=== PATIENT | female | born 1980 | race Two or more races ===

== ENCOUNTER 2019-10-11 14:38 | Inpatient (IN) | payer OTHER ==
[~2019-10-11] VITALS: Ht 167.6 cm; Wt 114.3 kg
== END 2019-10-31 11:44 | disposition home or self-care (01) | DRG 807 ==
LOC: LDR 10-29 07:10 → OB/GYN 10-29 17:01
PROVIDERS: ADMIT Obstetrics & Gynecology Maternal & Fetal Medicine
PROC: 10E0XZZ Delivery of Products of Conception, External Approach (ICD-10-PCS; principal; 2019-10-29)
PROC: 10907ZC Drainage of Amniotic Fluid, Therapeutic from Products of Conception, Via Natural or Artificial Opening (ICD-10-PCS; 2019-10-29)
PROC: 3E033VJ Introduction of Other Hormone into Peripheral Vein, Percutaneous Approach (ICD-10-PCS; 2019-10-29)
PROC: 4A1HXCZ Monitoring of Products of Conception, Cardiac Rate, External Approach (ICD-10-PCS; 2019-10-29)
DX: O80 Encounter for full-term uncomplicated delivery (principal); Z37.0 Single live birth; Z3A.39 39 weeks gestation of pregnancy

== ENCOUNTER 2020-04-17 13:00 | Outpatient (CLI) | payer OTHER | END 2020-04-17 13:05 | disposition home or self-care (01) | LOC: RAD 13:00 | DX: M25.552 Pain in left hip (principal) ==

== ENCOUNTER 2020-05-20 09:45 | Outpatient (CLI) | payer OTHER | END 2020-05-20 09:50 | disposition home or self-care (01) | LOC: MRI 09:45 | PROVIDERS: ATTEND Internal Medicine | DX: M54.5 Low back pain (principal); Z01.810 Encounter for preprocedural cardiovascular examination; S83.200A Bucket-handle tear of unspecified meniscus, current injury, right knee, initial encounter | CPT/HCPCS: 73718 ==

== ENCOUNTER 2020-11-13 11:22 | Outpatient (CLI) | payer OTHER | END 2020-11-13 12:45 | disposition home or self-care (01) | LOC: MRI 11:22 | PROVIDERS: ATTEND Orthopaedic Surgery | DX: M25.461 Effusion, right knee (principal); M25.561 Pain in right knee | CPT/HCPCS: 73721 ==

== ENCOUNTER 2022-08-12 09:48 | Emergency (ER) | payer OTHER ==
[~2022-08-12] VITALS: Ht 167.6 cm; Wt 90.7 kg
[2022-08-12] MEDS ORDERED: DICLOFENAC POTA50 MG PO (14:50)
[2022-08-12] MEDS ORDERED: ORPHENADRINE C100 MG PO (14:50)
== END 2022-08-12 15:07 ==
LOC: ER 09:48 → EDBD 09:53 → ER 09:53
DX: M54.12 Radiculopathy, cervical region (principal); R51.9 Headache, unspecified; Z88.8 Allergy status to other drugs, medicaments and biological substances

== ENCOUNTER 2023-08-21 03:32 | Emergency (ER) | payer OTHER ==
[~2023-08-21] VITALS: Ht 165.1 cm; Wt 88.5 kg
[~2023-08-21 03:32] MED LIST: DICLOFENAC POTA50 MG PO; ORPHENADRINE C100 MG PO
[2023-08-21 06:16] LABS: HEMATOCRIT 38.1 % (36.0-45.00); HEMOGLOBIN 12.7 g/dL (12.0-15.00); MEAN CORPUSCULAR HEMOGLOBIN 32.2 pg (27.00-32.0); MEAN CORPUSCULAR HGB CONC 33.5 g/dl (32.0-36.0); PLATELET COUNT 279 K/uL (150-450); RED BLOOD COUNT 3.96 M/uL (4.00-6.00); RED CELL DISTRIBUTION WIDTH 13.3 % (11.5-14.5)
[2023-08-21 06:47] LABS: D DIMER 3.19 MG/L; INR 1.04; PARTIAL THROMBOPLASTIN TIME 28.1 SECONDS (22.0-34.0); PROTHROMBIN TIME 10.9 SECONDS (9.0-11.5)
[2023-08-21 06:49] LABS: ALBUMIN 3.4 gm/dL (3.4-5.0); BILIRUBIN TOTAL 0.68 mg/dL (0.3-1.2); CALCIUM 8.7 mg/dL (8.5-10.1); CREATININE SERUM 0.63 mg/dL (0.55-1.02); GFR 104.66; GLOBULINA 3.9 G/DL (2.4-3.5); POTASSIUM 4.17 mEq/L (3.5-5.1); TOTAL PROTEIN 7.3 gm/dL (6.4-8.2)
[2023-08-21] MEDS ORDERED: CELEBREX200MG PO (09:10)
== END 2023-08-21 09:35 | disposition home or self-care (01) ==
LOC: ER 03:32
PROVIDERS: General Practice
DX: M79.662 Pain in left lower leg (principal)